=== PATIENT | male | born 1965 | race African-American/Black ===

== ENCOUNTER 2021-11-29 11:57 | Inpatient (IN) ==
[2021-11-29 14:22] LABS: Basophils % 0.1 % (0.0-0.8); Hematocrit 40.8 VOL% (42.0-52.0); Hemoglobin 13.4 GM/DL (14.0-18.0); Immature Granulocytes % 1.2 %; Immature Granulocytes Absolute 0.13 #; Lymphocytes # 0.6 10*3/uL (1.4-4.0); Lymphocytes % 5.4 % (21.2-54.2); Mean Corpuscular HGB Conc 32.8 GM/DL (32-36); Mean Corpuscular Volume 90.7 FL (87-102); Mean Platelet Volume 9.1 FL (9.6-12.0); Monocytes # 0.8 10*3/uL (0.11-0.8); Monocytes % 7.4 % (1.7-12.7); Neutrophils % 85.9 % (38.7-73.9); Platelet Count 238 T/CUMM (130-400); Red Cell Distribution Width 12.5 % (9.3-17.3); White Blood Count 10.6 T/CUMM (4-12)
[2021-11-29 14:38] LABS: Alanine Aminotransferase 23 U/L (16-61); Albumin 3.4 G/DL (3.4-5.0); Alkaline Phosphatase 61 U/L (45-117); Aspartate Amino Transferase 11 U/L (0-37); Bilirubin,Total < 0.39 MG/DL (0.20-1.00); Blood Urea Nitrogen 13 MG/DL (7-18); Calcium 9.2 MG/DL (8.5-10.1); Carbon Dioxide 26 MMOL/L (21-32); Chloride 108 MMOL/L (98-107); Estimated Glom Filtration Rate 125 ML/MIN; Glucose 78 MG/DL (74-106); Osmolality,Calculated 271.8 MOS/KG (273-304); Potassium 4.3 MMOL/L (3.5-5.1); Sodium 137 MMOL/L (136-145); Total Protein 6.9 G/DL (6.4-8.2)
[2021-11-29 15:20] LABS: Bacteria,Urine Occasional /HPF (Few); Bilirubin,Urine Negative (Negative); Blood, Urine Negative (Negative); Glucose,Urine (UA) Negative (Negative); Ketones,Urine Negative (Negative); Nitrite,Urine Negative (Negative); Protein,Urine Negative (Negative); RBC,Urine 2 /HPF (0-4); Urine Appearance Clear (Clear); Urine Color Yellow (Yellow); Urine Specific Gravity 1.015 (1.001-1.035)
[2021-11-29] MEDS ORDERED: DEXAMETHASONE 4 MG/1 ML VIAL IV STA ×2 (15:30→15:57)
[2021-11-29] MEDS ORDERED: ONDANSETRON 4 MG/2 ML VIAL IV PRN (15:47)
[2021-11-29] MEDS ORDERED: hydrALAZINE 20 MG/1 ML VIAL IV PRN (15:47)
[2021-11-29] MEDS ORDERED: NICOTINE 21 MG/24 HR PATCH TRANSDERM PRN (15:47)
[2021-11-29] MEDS ORDERED: GLUCAGON 1 MG VIAL IM PRN (15:47)
[2021-11-29] MEDS ORDERED: diphenhydrAMINE CAP 25 MG CAPSULE PO PRN (15:47)
[2021-11-29] MEDS ORDERED: PROMETHAZINE 25 MG/1 ML VIAL IM PRN (15:47)
[2021-11-29] MEDS ORDERED: ACETAMINOPHEN 325 MG TABLET PO PRN (15:47)
[2021-11-29] MEDS ORDERED: DEXTROSE 10% 250 ML BAG IV PRN (15:52)
[2021-11-29] MEDS: HEPARIN 5,000 UNIT/1 ML VIAL SUBCUT SCH (18:38)
[2021-11-29] MEDS: ALBUTEROL/IPRATROPIUM 3 ML NEB RESP TX SCH (19:45)
[2021-11-29] MEDS ORDERED: DEXAMETHASONE 4 MG/1 ML VIAL IV SCH (21:00)
[2021-11-29] MEDS: DEXAMETHASONE 10 MG/1 ML VIAL IV SCH (21:30)
[2021-11-30] MEDS: ALBUTEROL/IPRATROPIUM 3 ML NEB RESP TX SCH ×4 (00:56→19:13)
[2021-11-30] MEDS: HEPARIN 5,000 UNIT/1 ML VIAL SUBCUT SCH ×2 (04:00→17:19)
[2021-11-30 04:51] LABS: Hematocrit 40.1 VOL% (42.0-52.0); Hemoglobin 13.3 GM/DL (14.0-18.0); Immature Granulocytes % 0.4 %; Immature Granulocytes Absolute 0.04 #; Lymphocytes # 0.5 10*3/uL (1.4-4.0); Lymphocytes % 5.3 % (21.2-54.2); Mean Corpuscular HGB Conc 33.2 GM/DL (32-36); Mean Corpuscular Volume 89.5 FL (87-102); Mean Platelet Volume 8.9 FL (9.6-12.0); Monocytes # 0.6 10*3/uL (0.11-0.8); Monocytes % 5.8 % (1.7-12.7); Neutrophils % 88.5 % (38.7-73.9); Platelet Count 236 T/CUMM (130-400); Red Blood Count 4.48 MC/CUMM (3.8-5.5); Red Cell Distribution Width 12.4 % (9.3-17.3); White Blood Count 9.6 T/CUMM (4-12)
[2021-11-30 05:11] LABS: Calcium 9.3 MG/DL (8.5-10.1); Potassium 4.1 MMOL/L (3.5-5.1)
[2021-11-30] MEDS: PANTOPRAZOLE 40 MG TABLET PO SCH (06:22)
[2021-11-30] MEDS: amLODIPine 10 MG TABLET PO SCH (09:50)
[2021-11-30] MEDS: BISACODYL 5 MG TABLET PO SCH (09:50)
[2021-11-30] MEDS: DEXAMETHASONE 10 MG/1 ML VIAL IV SCH ×3 (09:51→21:47)
[2021-12-01] MEDS: ALBUTEROL/IPRATROPIUM 3 ML NEB RESP TX SCH ×2 (01:11→07:52)
[2021-12-01] MEDS: HEPARIN 5,000 UNIT/1 ML VIAL SUBCUT SCH ×2 (04:50→16:58)
[2021-12-01] MEDS: PANTOPRAZOLE 40 MG TABLET PO SCH (05:46)
[2021-12-01 06:18] LABS: Basophils % 0.1 % (0.0-0.8); Hematocrit 40.1 VOL% (42.0-52.0); Hemoglobin 13.2 GM/DL (14.0-18.0); Immature Granulocytes % 0.7 %; Lymphocytes # 0.4 10*3/uL (1.4-4.0); Lymphocytes % 2.9 % (21.2-54.2); Mean Corpuscular HGB Conc 32.9 GM/DL (32-36); Mean Corpuscular Volume 91.3 FL (87-102); Mean Platelet Volume 9.6 FL (9.6-12.0); Monocytes # 0.7 10*3/uL (0.11-0.8); Neutrophils % 91.3 % (38.7-73.9); Platelet Count 242 T/CUMM (130-400); Red Blood Count 4.39 MC/CUMM (3.8-5.5); Red Cell Distribution Width 12.6 % (9.3-17.3)
[2021-12-01 06:33] LABS: Calcium 8.9 MG/DL (8.5-10.1); Osmolality,Calculated 275.7 MOS/KG (273-304); Potassium 4.3 MMOL/L (3.5-5.1)
[2021-12-01 06:43] LABS: Lymphocytes 4 % (20-55); Platelet Estimate Adequate; Total Cells Counted 100
[2021-12-01] MEDS ORDERED: ALBUTEROL/IPRATROPIUM 3 ML NEB RESP TX PRN (08:58)
[2021-12-01] MEDS: BISACODYL 5 MG TABLET PO SCH (09:21)
[2021-12-01] MEDS: amLODIPine 10 MG TABLET PO SCH (09:21)
[2021-12-01] MEDS: DEXAMETHASONE 10 MG/1 ML VIAL IV SCH ×2 (11:23→20:42)
[2021-12-01] MEDS ORDERED: BEVACIZUMAB BVZR IV ONE (11:30)
[2021-12-01] MEDS ORDERED: SODIUM CHLORIDE 0.9% IV ONE (11:30)
[2021-12-01] MEDS: guaiFENesin/DM ER 600-30 MG TABLET PO PRN (20:41)
[2021-12-02] MEDS: HEPARIN 5,000 UNIT/1 ML VIAL SUBCUT SCH ×2 (04:55→16:07)
[2021-12-02 05:47] LABS: Basophils % 0.1 % (0.0-0.8); Hematocrit 40.2 VOL% (42.0-52.0); Hemoglobin 13.3 GM/DL (14.0-18.0); Immature Granulocytes % 0.8 %; Immature Granulocytes Absolute 0.11 #; Lymphocytes # 0.6 10*3/uL (1.4-4.0); Lymphocytes % 4.3 % (21.2-54.2); Mean Corpuscular HGB Conc 33.1 GM/DL (32-36); Mean Corpuscular Volume 90.7 FL (87-102); Mean Platelet Volume 9.3 FL (9.6-12.0); Neutrophils % 87.8 % (38.7-73.9); Platelet Count 240 T/CUMM (130-400); Red Blood Count 4.43 MC/CUMM (3.8-5.5); Red Cell Distribution Width 12.6 % (9.3-17.3); White Blood Count 14.4 T/CUMM (4-12)
[2021-12-02] MEDS: PANTOPRAZOLE 40 MG TABLET PO SCH (05:58)
[2021-12-02 06:07] LABS: Calcium 8.5 MG/DL (8.5-10.1); Lymphocytes 6 % (20-55); Osmolality,Calculated 273.8 MOS/KG (273-304); Platelet Estimate Normal; Potassium 4.2 MMOL/L (3.5-5.1); Total Cells Counted 100
[2021-12-02] MEDS: BISACODYL 5 MG TABLET PO SCH (09:28)
[2021-12-02] MEDS: DEXAMETHASONE 10 MG/1 ML VIAL IV SCH ×2 (09:28→21:47)
[2021-12-02] MEDS: amLODIPine 10 MG TABLET PO SCH (09:28)
[2021-12-02] MEDS: guaiFENesin/DM ER 600-30 MG TABLET PO PRN (09:32)
[2021-12-03] MEDS: guaiFENesin/DM ER 600-30 MG TABLET PO PRN ×2 (02:47→21:44)
[2021-12-03] MEDS: HEPARIN 5,000 UNIT/1 ML VIAL SUBCUT SCH ×2 (04:42→16:08)
[2021-12-03] MEDS: PANTOPRAZOLE 40 MG TABLET PO SCH (06:11)
[2021-12-03] MEDS: BISACODYL 5 MG TABLET PO SCH (08:42)
[2021-12-03] MEDS: amLODIPine 10 MG TABLET PO SCH (08:42)
[2021-12-03] MEDS: DEXAMETHASONE 10 MG/1 ML VIAL IV SCH ×2 (08:43→21:45)
[2021-12-04 05:12] LABS: Basophils % 0.1 % (0.0-0.8); Hemoglobin 14.3 GM/DL (14.0-18.0); Immature Granulocytes % 1.5 %; Immature Granulocytes Absolute 0.22 #; Lymphocytes # 0.6 10*3/uL (1.4-4.0); Lymphocytes % 3.8 % (21.2-54.2); Mean Corpuscular HGB Conc 33.3 GM/DL (32-36); Mean Corpuscular Volume 89.8 FL (87-102); Mean Platelet Volume 9.2 FL (9.6-12.0); Monocytes % 6.3 % (1.7-12.7); Neutrophils % 88.3 % (38.7-73.9); Platelet Count 258 T/CUMM (130-400); Red Blood Count 4.79 MC/CUMM (3.8-5.5); Red Cell Distribution Width 12.5 % (9.3-17.3); White Blood Count 15.1 T/CUMM (4-12)
[2021-12-04] MEDS: HEPARIN 5,000 UNIT/1 ML VIAL SUBCUT SCH (05:12)
[2021-12-04 05:25] LABS: Calcium 8.5 MG/DL (8.5-10.1); Osmolality,Calculated 272.1 MOS/KG (273-304); Potassium 4.2 MMOL/L (3.5-5.1)
[2021-12-04 05:30] LABS: Eosinophils 1 % (0-10); Lymphocytes 2 % (20-55); Platelet Estimate Adequate; Total Cells Counted 100
[2021-12-04] MEDS: PANTOPRAZOLE 40 MG TABLET PO SCH (06:09)
[2021-12-04 08:38] VITALS: BP 146/85
[2021-12-04] MEDS: amLODIPine 10 MG TABLET PO SCH (10:05)
[2021-12-04] MEDS: BISACODYL 5 MG TABLET PO SCH (10:06)
[2021-12-04] MEDS: DEXAMETHASONE 10 MG/1 ML VIAL IV SCH (10:06)
== END 2021-12-04 12:09 | disposition home health service (06) | DRG 47 ==
LOC: N.ED 11:57 → SUATTDRO 15:47 → N.TELES 15:47
PROVIDERS: ADMIT Internal Medicine; ATTEND Internal Medicine

== ENCOUNTER 2022-01-30 08:50 | Inpatient (IN) ==
[2022-01-30] MEDS ORDERED: SODIUM CHLORIDE 0.9% 1,000 ML IV STA (10:00)
[2022-01-30 10:40] LABS: Basophils % 0.1 % (0.0-0.8); Eosinophils % 0.1 % (0.00-10.9); Hemoglobin 14.5 GM/DL (14.0-18.0); Immature Granulocytes % 1.6 %; Immature Granulocytes Absolute 0.25 #; Lymphocytes # 0.8 10*3/uL (1.4-4.0); Lymphocytes % 4.9 % (21.2-54.2); Mean Corpuscular HGB Conc 33.7 GM/DL (32-36); Mean Corpuscular Volume 88.5 FL (87-102); Mean Platelet Volume 8.8 FL (9.6-12.0); Monocytes # 1.4 10*3/uL (0.11-0.8); Monocytes % 8.5 % (1.7-12.7); Neutrophils % 84.8 % (38.7-73.9); Platelet Count 236 T/CUMM (130-400); Red Blood Count 4.86 MC/CUMM (3.8-5.5); Red Cell Distribution Width 13.2 % (9.3-17.3); White Blood Count 16.1 T/CUMM (4-12)
[2022-01-30 10:49] LABS: PT Patient Result 10.8 SECS (10.5-12.0)
[2022-01-30 10:57] LABS: Albumin 3.3 G/DL (3.4-5.0); Bilirubin,Total 0.5 MG/DL (0.20-1.00); Calcium 8.7 MG/DL (8.5-10.1); Potassium 4.2 MMOL/L (3.5-5.1); Total Protein 6.2 G/DL (6.4-8.2)
[2022-01-30 10:58] LABS: Lymphocytes 5 % (20-55); Platelet Estimate Adequate; Total Cells Counted 100
[2022-01-30 11:22] LABS: Protein,Urine Trace mg/dL (Negative); Urine Appearance Cloudy (Clear); Urine Color Yellow (Yellow); Urine pH 7.5 (4.5-8.0)
[2022-01-30 11:23] LABS: Amorphous Crystals,Urine Few /HPF (Few); Bilirubin,Urine Negative (Negative); Blood, Urine Negative (Negative); Glucose,Urine (UA) Negative (Negative); Ketones,Urine Negative (Negative); Mucus,Urine Occasional /LPF (Occasional); Nitrite,Urine Negative (Negative); RBC,Urine 8 /HPF (0-4); Urine Urobilinogen 0.2 eU/dL (<2.0)
[2022-01-30] MEDS ORDERED: DEXAMETHASONE 4 MG/1 ML VIAL IV STA (11:37)
[2022-01-30] MEDS ORDERED: GLUCAGON 1 MG VIAL IM PRN (12:56)
[2022-01-30] MEDS ORDERED: ONDANSETRON 4 MG/2 ML VIAL IV PRN (12:56)
[2022-01-30] MEDS ORDERED: DEXTROSE 10% 250 ML BAG IV PRN (12:56)
[2022-01-30] MEDS ORDERED: PANTOPRAZOLE 40 MG TABLET PO SCH (13:30)
[2022-01-30] MEDS: ENOXAPARIN 40 MG/0.4 ML SYRINGE SUBCUT SCH (13:31)
[2022-01-30] MEDS: LACTATED RINGERS 1,000 ML IV SCH (13:34)
[2022-01-30] MEDS: DEXAMETHASONE 4 MG/1 ML VIAL IV SCH ×2 (15:43→20:10)
[2022-01-31] MEDS: LACTATED RINGERS 1,000 ML IV SCH ×3 (00:38→21:25)
[2022-01-31] MEDS: DEXAMETHASONE 4 MG/1 ML VIAL IV SCH ×7 (00:47→16:42)
[2022-01-31 04:13] LABS: Basophils % 0.1 % (0.0-0.8); Hematocrit 42.6 VOL% (42.0-52.0); Hemoglobin 13.9 GM/DL (14.0-18.0); Immature Granulocytes % 1.2 %; Lymphocytes # 0.9 10*3/uL (1.4-4.0); Lymphocytes % 5.3 % (21.2-54.2); Mean Corpuscular HGB Conc 32.6 GM/DL (32-36); Mean Corpuscular Volume 89.3 FL (87-102); Mean Platelet Volume 9.1 FL (9.6-12.0); Monocytes # 1.2 10*3/uL (0.11-0.8); Monocytes % 7.4 % (1.7-12.7); Platelet Count 263 T/CUMM (130-400); Red Blood Count 4.77 MC/CUMM (3.8-5.5); Red Cell Distribution Width 13.1 % (9.3-17.3); White Blood Count 16.3 T/CUMM (4-12)
[2022-01-31 04:37] LABS: Alanine Aminotransferase 17 U/L (16-61); Albumin 2.9 G/DL (3.4-5.0); Alkaline Phosphatase 80 U/L (45-117); Aspartate Amino Transferase 11 U/L (0-37); Bilirubin,Total < 0.39 MG/DL (0.20-1.00); Blood Urea Nitrogen 17 MG/DL (7-18); Calcium 8.8 MG/DL (8.5-10.1); Carbon Dioxide 26 MMOL/L (21-32); Chloride 107 MMOL/L (98-107); Glucose 107 MG/DL (74-106); Osmolality,Calculated 278.5 MOS/KG (273-304); Potassium 4.5 MMOL/L (3.5-5.1); Sodium 139 MMOL/L (136-145); Total Protein 6.1 G/DL (6.4-8.2)
[2022-01-31] MEDS ORDERED: ALBUTEROL 1.25 MG/3 ML NEB RESP TX PRN (07:34)
[2022-01-31] MEDS ORDERED: PROMETHAZINE 25 MG TABLET PO PRN (07:34)
[2022-01-31] MEDS ORDERED: LORazepam 0.5 MG TABLET PO PRN (07:34)
[2022-01-31] MEDS ORDERED: LORazepam 1 MG TABLET PO PRN (08:00)
[2022-01-31] MEDS: MEGESTROL 40 MG TABLET PO SCH (08:54)
[2022-01-31] MEDS: PANTOPRAZOLE 40 MG TABLET PO SCH ×2 (08:55→21:25)
[2022-01-31] MEDS ORDERED: BEVACIZUMAB BVZR IV ONE (11:00)
[2022-01-31] MEDS ORDERED: SODIUM CHLORIDE 0.9% IV ONE (11:00)
[2022-01-31] MEDS ORDERED: ALUM/MAG/SIMETH/LIDO VISC 1:1 30 ML BOTTLE PO ONE (12:39)
[2022-01-31] MEDS: ENOXAPARIN 40 MG/0.4 ML SYRINGE SUBCUT SCH (12:41)
[2022-01-31] MEDS ORDERED: traZODone 50 MG TABLET PO SCH (21:00)
[2022-02-01] MEDS: DEXAMETHASONE 4 MG/1 ML VIAL IV SCH ×3 (00:55→11:20)
[2022-02-01] MEDS: LACTATED RINGERS 1,000 ML IV SCH (05:54)
[2022-02-01] MEDS: MEGESTROL 40 MG TABLET PO SCH (08:21)
[2022-02-01] MEDS: PANTOPRAZOLE 40 MG TABLET PO SCH (08:21)
[2022-02-01 08:48] VITALS: BP 138/85
[2022-02-01 08:49] LABS: Basophils % 0.1 % (0.0-0.8); Hematocrit 39.5 VOL% (42.0-52.0); Hemoglobin 13.2 GM/DL (14.0-18.0); Immature Granulocytes % 0.8 %; Immature Granulocytes Absolute 0.11 #; Lymphocytes # 0.5 10*3/uL (1.4-4.0); Lymphocytes % 3.7 % (21.2-54.2); Mean Corpuscular HGB Conc 33.4 GM/DL (32-36); Mean Corpuscular Volume 88.6 FL (87-102); Mean Platelet Volume 9.4 FL (9.6-12.0); Monocytes # 0.6 10*3/uL (0.11-0.8); Monocytes % 4.2 % (1.7-12.7); Neutrophils % 91.2 % (38.7-73.9); Platelet Count 245 T/CUMM (130-400); Red Blood Count 4.46 MC/CUMM (3.8-5.5); Red Cell Distribution Width 12.9 % (9.3-17.3); White Blood Count 14.3 T/CUMM (4-12)
[2022-02-01 09:08] LABS: Calcium 8.4 MG/DL (8.5-10.1); Osmolality,Calculated 270.1 MOS/KG (273-304); Potassium 4.2 MMOL/L (3.5-5.1)
[2022-02-01 09:37] LABS: Lymphocytes 5 % (20-55); Platelet Estimate Adequate; Total Cells Counted 100
[2022-02-01] MEDS ORDERED: BISACODYL 10 MG SUPP RECTAL PRN (09:49)
[2022-02-01] MEDS ORDERED: NYSTATIN 500,000 UNIT/5 ML UDCUP SWISH/SWAL SCH (13:00)
== END 2022-02-01 14:59 | disposition home or self-care (01) | DRG 41 ==
LOC: N.ED 08:50 → N.EDINP 12:59 → SUATTDRO 12:59 → N.TELES 13:57
PROVIDERS: ADMIT Internal Medicine; ATTEND Internal Medicine

== ENCOUNTER 2022-02-06 14:11 | Observation (INO) ==
[2022-02-06] MEDS ORDERED: SODIUM CHLORIDE 0.9% 1,000 ML IV STA (14:40)
[2022-02-06 14:58] LABS: Basophils % 0.1 % (0.0-0.8); Eosinophils # 0.1 10*3/uL (0.0-0.87); Eosinophils % 0.5 % (0.00-10.9); Hematocrit 45.5 VOL% (42.0-52.0); Hemoglobin 15.3 GM/DL (14.0-18.0); Immature Granulocytes % 0.9 %; Immature Granulocytes Absolute 0.15 #; Lymphocytes # 0.9 10*3/uL (1.4-4.0); Lymphocytes % 5.2 % (21.2-54.2); Mean Corpuscular HGB Conc 33.6 GM/DL (32-36); Mean Corpuscular Volume 87.5 FL (87-102); Mean Platelet Volume 8.9 FL (9.6-12.0); Monocytes # 1.7 10*3/uL (0.11-0.8); Neutrophils % 83.3 % (38.7-73.9); Platelet Count 235 T/CUMM (130-400)
[2022-02-06 15:12] LABS: Bacteria,Urine Few /HPF (Few); Mucus,Urine Occasional /LPF (Occasional); RBC,Urine 52 /HPF (0-4); Squamous Epithelial Cell,Urine Occasional /HPF (0-10)
[2022-02-06 15:13] LABS: Bilirubin,Urine Small mg/dL (Negative); Blood, Urine Moderate mg/dL (Negative); Glucose,Urine (UA) Negative (Negative); Ketones,Urine Negative (Negative); Nitrite,Urine Negative (Negative); Protein,Urine 30 mg/dL (Negative); Urine Appearance Clear (Clear); Urine Color Yellow (Yellow); Urine Specific Gravity 1.032 (1.001-1.035); Urine pH 6.5 (4.5-8.0)
[2022-02-06 15:18] LABS: Albumin 2.8 G/DL (3.4-5.0); Bilirubin,Total 0.6 MG/DL (0.20-1.00); Calcium 8.7 MG/DL (8.5-10.1); Potassium 4.1 MMOL/L (3.5-5.1); Total Protein 6.6 G/DL (6.4-8.2)
[2022-02-06] MEDS ORDERED: cefTRIAXone 1,000 MG in SODIUM CHLORIDE 0.9% 100 ML IV STA (15:23)
[2022-02-06] MEDS ORDERED: DEXAMETHASONE 10 MG/1 ML VIAL IV STA (15:38)
[2022-02-06] MEDS ORDERED: GLUCAGON 1 MG VIAL IM PRN (16:47)
[2022-02-06] MEDS ORDERED: hydrALAZINE 20 MG/1 ML VIAL IV PRN (16:47)
[2022-02-06] MEDS ORDERED: ACETAMINOPHEN 325 MG TABLET PO PRN (16:47)
[2022-02-06] MEDS ORDERED: ALBUTEROL 2.5 MG/3 ML NEB RESP TX PRN (16:47)
[2022-02-06] MEDS ORDERED: PROMETHAZINE 25 MG TABLET PO PRN (16:55)
[2022-02-06] MEDS ORDERED: DEXTROSE 10% 250 ML BAG IV PRN (17:07)
[2022-02-06] MEDS: DEXTROSE 5% NACL 0.45% 1,000 ML IV SCH (18:53)
[2022-02-06] MEDS: NYSTATIN 500,000 UNIT/5 ML UDCUP SWISH/SWAL SCH ×2 (18:55→21:57)
[2022-02-06] MEDS: traZODone 50 MG TABLET PO SCH (21:57)
[2022-02-07 05:26] LABS: Basophils % 0.1 % (0.0-0.8); Hematocrit 43.1 VOL% (42.0-52.0); Immature Granulocytes % 0.8 %; Immature Granulocytes Absolute 0.12 #; Lymphocytes # 0.5 10*3/uL (1.4-4.0); Lymphocytes % 2.9 % (21.2-54.2); Mean Corpuscular HGB Conc 32.5 GM/DL (32-36); Mean Corpuscular Volume 89.4 FL (87-102); Mean Platelet Volume 9.7 FL (9.6-12.0); Monocytes # 1.1 10*3/uL (0.11-0.8); Monocytes % 6.9 % (1.7-12.7); Neutrophils % 89.3 % (38.7-73.9); Platelet Count 249 T/CUMM (130-400); Red Blood Count 4.82 MC/CUMM (3.8-5.5); Red Cell Distribution Width 12.7 % (9.3-17.3); White Blood Count 15.8 T/CUMM (4-12)
[2022-02-07 05:38] LABS: Albumin 2.8 G/DL (3.4-5.0); Bilirubin,Total 0.5 MG/DL (0.20-1.00); Osmolality,Calculated 264.7 MOS/KG (273-304); Potassium 3.7 MMOL/L (3.5-5.1); Total Protein 6.6 G/DL (6.4-8.2)
[2022-02-07 06:44] LABS: Lymphocytes 3 % (20-55); Microcytosis Slight; Total Cells Counted 100
[2022-02-07 06:45] LABS: Platelet Estimate Normal
[2022-02-07] MEDS: MORPHINE 2 MG/1 ML SYRINGE IV PRN ×2 (08:18→21:28)
[2022-02-07] MEDS: ONDANSETRON 4 MG/2 ML VIAL IV PRN ×2 (08:30→21:31)
[2022-02-07] MEDS: chlorproMAZINE INJ 25 MG in SODIUM CHLORIDE 0.9% 100 ML IV PRN ×2 (12:41→23:12)
[2022-02-07] MEDS: DEXAMETHASONE 10 MG/1 ML VIAL IV SCH (13:17)
[2022-02-07] MEDS: NYSTATIN 500,000 UNIT/5 ML UDCUP SWISH/SWAL SCH ×4 (13:57→22:30)
[2022-02-07] MEDS: LORazepam 1 MG TABLET PO PRN (15:44)
[2022-02-07] MEDS: PANTOPRAZOLE 40 MG TABLET PO SCH (15:44)
[2022-02-07] MEDS: DEXTROSE 5% NACL 0.45% 1,000 ML IV SCH (15:44)
[2022-02-07] MEDS: MEGESTROL 40 MG TABLET PO SCH (15:44)
[2022-02-07] MEDS: traZODone 50 MG TABLET PO SCH (23:49)
[2022-02-08] MEDS: PANTOPRAZOLE 40 MG TABLET PO SCH (08:54)
[2022-02-08] MEDS: LORazepam 1 MG TABLET PO PRN ×2 (08:54→15:59)
[2022-02-08] MEDS: MEGESTROL 40 MG TABLET PO SCH (08:54)
[2022-02-08] MEDS: DEXAMETHASONE 10 MG/1 ML VIAL IV SCH (08:55)
[2022-02-08] MEDS: NYSTATIN 500,000 UNIT/5 ML UDCUP SWISH/SWAL SCH ×2 (09:20→14:42)
[2022-02-08] MEDS ORDERED: chlorproMAZINE 25 MG TABLET PO PRN (10:58)
[2022-02-08 12:09] VITALS: BP 115/77
[2022-02-08] MEDS: DEXTROSE 5% NACL 0.45% 1,000 ML IV SCH (14:42)
== END 2022-02-08 16:00 | disposition hospice, home (50) ==
LOC: EDUNIT# → EDBD → N.EDINP 14:11 → N.ED 14:11 → N.TELEN 18:25 → N.TELES 02-07 16:20
PROVIDERS: ADMIT Family Medicine; ATTEND Family Medicine